=== PATIENT | female | born 1980 | race Caucasian/White ===

== ENCOUNTER 2020-11-30 13:42 | Emergency (ER) | payer OTHER ==
[2020-11-30 14:06] VITALS: BP 112/76; PULSE 82; TEMP 97.6; BMI 30.8
[2020-11-30 15:21] LABS: URINE APPEARANCE CLEAR; URINE BILIRUBIN NEGATIVE (NEGATIVE); URINE COLOR YELLOW; URINE GLUCOSE (UA) NEGATIVE (NEGATIVE); URINE KETONE NEGATIVE (NEGATIVE); URINE LEUK ESTERASE NEGATIVE (NEGATIVE); URINE NITRITE NEGATIVE (NEGATIVE); URINE PROTEIN NEGATIVE (NEGATIVE); URINE UROBILINOGEN 0.2 mg/dL (0.2-1.0)
== END 2020-11-30 15:44 | disposition home or self-care (01) ==
LOC: JERFT 13:42
DX: O23.599 Infection of other part of genital tract in pregnancy, unspecified trimester (principal); O21.9 Vomiting of pregnancy, unspecified
CPT/HCPCS: 36415; 81003; 84703; 87070; 87077; 87086; 87205; 87491; 87591; 99284-25

== ENCOUNTER 2020-12-02 19:41 | Emergency (ER) | payer OTHER ==
[2020-12-02 19:54] VITALS: BP 117/75; PULSE 85; TEMP 98.9; BMI 30.1
== END 2020-12-02 20:50 | disposition home or self-care (01) ==
LOC: JERFT 19:41
DX: J30.89 Other allergic rhinitis (principal)
CPT/HCPCS: 99281-25; C9803; U0003; U0005

== ENCOUNTER 2021-01-26 14:54 | Emergency (ER) | payer OTHER ==
[2021-01-26 15:15] VITALS: BP 106/72; PULSE 74; TEMP 98; BMI 26.5
[2021-01-26] MEDS ORDERED: SODIUM CHLORIDE 0.9% 500 ML INFUS.BAG IV ONE (16:22)
[2021-01-26 17:05] LABS: BASO % 0.5 % (0-2.0); EOS % 1.4 % (0-4.5); HEMATOCRIT 36.4 % (32.4-45.2); HEMOGLOBIN 12.1 GM/dL (10.7-15.3); LYMPH % 34.7 % (8-40); MCH 27.3 pg (25.7-33.7); MCHC 33.2 g/dl (32.0-36.0); MEAN CELL VOLUME 82.4 fl (80-96); MEAN PLT VOLUME 7.5 fl (7.5-11.1); MONO % 7.2 % (3.8-10.2); NEUT % 56.2 % (42.8-82.8); PLATELET COUNT 270 10^3/uL (134-434); RBC 4.41 M/mm3 (3.60-5.2); RDW 13.8 % (11.6-15.6)
[2021-01-26 17:07] LABS: PH,URINE 7.5 (5.0-8.0); URINE APPEARANCE CLEAR; URINE BILIRUBIN NEGATIVE (NEGATIVE); URINE COLOR YELLOW; URINE GLUCOSE (UA) NEGATIVE (NEGATIVE); URINE KETONE NEGATIVE (NEGATIVE); URINE LEUK ESTERASE NEGATIVE (NEGATIVE); URINE NITRITE NEGATIVE (NEGATIVE); URINE PROTEIN NEGATIVE (NEGATIVE)
[2021-01-26 17:12] LABS: INR 1.06 (0.83-1.09)
[2021-01-26 17:15] LABS: ACTIVATED PTT 27.9 SECONDS (25.2-36.5)
[2021-01-26 17:26] LABS: BLOOD UREA NITROGEN 6.8 mg/dL (7-18); CALCIUM 8.5 mg/dL (8.5-10.1)
[2021-01-26 17:27] LABS: ALBUMIN 3.9 g/dl (3.4-5.0)
[2021-01-26 17:30] LABS: CREATININE 0.7 mg/dL (0.55-1.3)
[2021-01-26 17:31] LABS: BILIRUBIN,TOTAL 1.3 mg/dL (0.2-1); TOT PROT 7.8 g/dl (6.4-8.2)
== END 2021-01-26 18:50 | disposition home or self-care (01) ==
LOC: JER 14:54
DX: O26.851 Spotting complicating pregnancy, first trimester (principal); Z3A.12 12 weeks gestation of pregnancy
CPT/HCPCS: 36415; 76817-TC; 80053; 81003; 84702; 85025; 85610; 85730; 86850; 86900; 86901; 87086; 99284-25

== ENCOUNTER 2021-02-08 23:03 | Emergency (ER) | payer OTHER ==
[2021-02-08 23:11] VITALS: BP 118/77; PULSE 100; TEMP 98.7; BMI 28.3
[2021-02-08 23:55] LABS: BASO % 0.7 % (0-2.0); EOS % 1.1 % (0-4.5); HEMATOCRIT 37.1 % (32.4-45.2); HEMOGLOBIN 12.5 GM/dL (10.7-15.3); MCH 27.6 pg (25.7-33.7); MCHC 33.7 g/dl (32.0-36.0); MEAN CELL VOLUME 81.8 fl (80-96); MEAN PLT VOLUME 7.1 fl (7.5-11.1); MONO % 5.3 % (3.8-10.2); NEUT % 68.9 % (42.8-82.8); PLATELET COUNT 312 10^3/uL (134-434); RBC 4.54 M/mm3 (3.60-5.2); RDW 13.5 % (11.6-15.6); WHITE BLOOD COUNT 9.7 K/mm3 (4.0-10.0)
[2021-02-09 01:17] LABS: ALBUMIN 4.3 g/dl (3.4-5.0)
[2021-02-09 01:18] LABS: BLOOD UREA NITROGEN 10.2 mg/dL (7-18)
[2021-02-09 01:21] LABS: CREATININE 0.7 mg/dL (0.55-1.3)
[2021-02-09 01:22] LABS: TOT PROT 8.3 g/dl (6.4-8.2)
== END 2021-02-09 02:39 | disposition left against medical advice (07) ==
LOC: JER 23:03
DX: N93.9 Abnormal uterine and vaginal bleeding, unspecified (principal)
CPT/HCPCS: 36415; 76817-TC; 80053; 84702; 85025; 86850; 86900; 86901; 99284-25

== ENCOUNTER 2021-02-11 17:58 | Emergency (ER) | payer OTHER ==
[2021-02-11 18:23] VITALS: BP 116/79; PULSE 88; BMI 26.5
[2021-02-11] MEDS ORDERED: SODIUM CHLORIDE 0.9% 500 ML INFUS.BAG IV ONE (20:00)
[2021-02-11] MEDS ORDERED: ACETAMINOPHEN 1000 MG/100 ML VIAL (NON FORMULARY) IVPB ONE (20:00)
[2021-02-11] MEDS ORDERED: ACETAMINOPHEN INJECTION 100 ML IVPB ONE (21:09)
[2021-02-11 21:18] LABS: BASO % 0.9 % (0-2.0); EOS % 2.1 % (0-4.5); HEMOGLOBIN 11.6 GM/dL (10.7-15.3); LYMPH % 35.3 % (8-40); MCH 27.5 pg (25.7-33.7); MCHC 33.3 g/dl (32.0-36.0); MEAN CELL VOLUME 82.6 fl (80-96); MEAN PLT VOLUME 7.2 fl (7.5-11.1); MONO % 6.4 % (3.8-10.2); NEUT % 55.3 % (42.8-82.8); PLATELET COUNT 291 10^3/uL (134-434); RBC 4.23 M/mm3 (3.60-5.2); RDW 13.7 % (11.6-15.6); WHITE BLOOD COUNT 6.8 K/mm3 (4.0-10.0)
[2021-02-11 21:27] VITALS: TEMP 98.7
[2021-02-11 21:47] LABS: ALBUMIN 4.1 g/dl (3.4-5.0); BLOOD UREA NITROGEN 10.2 mg/dL (7-18); CALCIUM 8.5 mg/dL (8.5-10.1)
[2021-02-11 21:50] LABS: BILIRUBIN,TOTAL 0.6 mg/dL (0.2-1)
[2021-02-11 21:50] LABS: EPI CELLS >36 /uL (0-25.1); HYALINE CASTS 2 /uL (0-3.1); URINE APPEARANCE TURBID; URINE BACTERIA 620 /uL (0-1359); URINE BILIRUBIN 1+ (NEGATIVE); URINE COLOR RED; URINE GLUCOSE (UA) NEGATIVE (NEGATIVE); URINE KETONE NEGATIVE (NEGATIVE); URINE LEUK ESTERASE 1+ (NEGATIVE); URINE NITRITE NEGATIVE (NEGATIVE); URINE PROTEIN 2+ (NEGATIVE); URINE RBC 19991 /uL (0-23.9); URINE UROBILINOGEN 0.2 mg/dL (0.2-1.0); URINE WBC 81 /uL (0-25.8)
[2021-02-11 21:51] LABS: CREATININE 0.7 mg/dL (0.55-1.3); TOT PROT 7.6 g/dl (6.4-8.2)
[2021-02-11] MEDS ORDERED: LIDOCAINE PATCH REMOVAL MC SCH (22:00)
[2021-02-11] MEDS ORDERED: LIDOCAINE 5% TOPICAL PATCH TP ONE (22:08)
[2021-02-11] MEDS ORDERED: LIDOCAINE 5% TOPICAL PATCH ONE (22:12)
== END 2021-02-11 23:25 | disposition home or self-care (01) ==
LOC: JER 17:58
PROC: 3E0333Z Introduction of Anti-inflammatory into Peripheral Vein, Percutaneous Approach (ICD-10-PCS; principal; 2021-02-11)
DX: O03.9 Complete or unspecified spontaneous abortion without complication (principal)
CPT/HCPCS: 36415; 71046-TC-FY; 76830-TC; 80053; 81003; 84702; 85025; 86850; 86900; 86901; 99285-25; C9803; J0131; U0003; U0005

== ENCOUNTER 2024-04-02 22:40 | Inpatient (IN) | payer OTHER ==
[2024-04-03] MEDS ORDERED: FAMOTIDINE 20 MG/50 ML IVPB 20 MG/50 ML MG IVPB ONE (00:24)
[2024-04-03] MEDS ORDERED: MAG HYDROX/AL HYDROX/SIMETH 30 ML UNIT-DOSE CUP ONE (00:33)
[2024-04-03] MEDS ORDERED: ACETAMINOPHEN INJECTION 100 ML ONE (00:34)
[2024-04-03] MEDS: MAG HYDROX/AL HYDROX/SIMETH 30 ML UNIT-DOSE CUP PO ONE ×2 (00:44→09:36)
[2024-04-03 01:01] LABS: BASO % 0.5 % (0-2.0); EOS % 5.3 % (0-4.5); HEMATOCRIT 35.7 % (32.4-45.2); HEMOGLOBIN 11.6 GM/dL (10.7-15.3); LYMPH % 33.4 % (8-40); MCHC 32.5 g/dl (32.0-36.0); MEAN CELL VOLUME 82.9 fl (80-96); MEAN PLT VOLUME 7.1 fl (7.5-11.1); MONO % 9.8 % (3.8-10.2); PH,URINE 5.5 (5.0-8.0); PLATELET COUNT 291 10^3/uL (134-434); RBC 4.31 M/mm3 (3.60-5.2); RDW 14.1 % (11.6-15.6); URINE APPEARANCE CLEAR; URINE BILIRUBIN NEGATIVE (NEGATIVE); URINE COLOR YELLOW; URINE GLUCOSE (UA) NEGATIVE (NEGATIVE); URINE KETONE NEGATIVE (NEGATIVE); URINE LEUK ESTERASE NEGATIVE (NEGATIVE); URINE NITRITE NEGATIVE (NEGATIVE); URINE PROTEIN NEGATIVE (NEGATIVE); WHITE BLOOD COUNT 6.4 K/mm3 (4.0-10.0)
[2024-04-03 01:09] LABS: HCG,QUALITATIVE URINE Negative
[2024-04-03 01:13] LABS: INR 1.04 (0.83-1.09); PROTHROMBIN TIME (PATIENT) 11.9 SEC (9.7-13.0)
[2024-04-03 01:16] LABS: ACTIVATED PTT 31.1 SECONDS (25.2-36.5)
[2024-04-03] MEDS: ACETAMINOPHEN 1000 MG/100 ML BAG IVPB ONE ×2 (01:17→06:40)
[2024-04-03] MEDS: SODIUM CHLORIDE 0.9% 500 ML INFUS.BAG IV ONE (01:17)
[2024-04-03 01:22] LABS: POTASSIUM 4.7 mmol/L (3.5-5.1)
[2024-04-03 01:24] LABS: CALCIUM 9.3 mg/dL (8.5-10.1)
[2024-04-03 01:25] LABS: ALBUMIN 3.3 g/dl (3.4-5.0); BLOOD UREA NITROGEN 11.7 mg/dL (7-18)
[2024-04-03 01:29] LABS: CREATININE 0.8 mg/dL (0.55-1.3)
[2024-04-03 01:30] LABS: TOT PROT 6.6 g/dl (6.4-8.2)
[2024-04-03] MEDS ORDERED: morphine SULFATE 4 MG/ML VIAL ONE (01:35)
[2024-04-03] MEDS ORDERED: ONDANSETRON 4 MG/2 ML VIAL ONE (01:36)
[2024-04-03 01:37] LABS: BILIRUBIN,TOTAL 0.8 mg/dL (0.2-1)
[2024-04-03] MEDS: morphine CARPU-JECT 4 MG/1 ML DISP.SYRIN IVPUSH ONE (01:43)
[2024-04-03] MEDS: ONDANSETRON 4 MG/2 ML VIAL IVPUSH ONE (01:44)
[2024-04-03 05:58] VITALS: BMI 34.2
[2024-04-03] MEDS ORDERED: MAG HYDROX/AL HYDROX/SIMETH -MYLANTA- ORAL SUSPENSION PO ONE (08:52)
[2024-04-03] MEDS ORDERED: ACETAMINOPHEN 500 MG TABLET (FP) PO PRN (08:53)
[2024-04-03] MEDS: LACTATED RINGERS SOLUTION 1,000 ML/1,000 ML INFUS.BAG IV SCH (09:35)
[2024-04-03] MEDS: PANTOPRAZOLE 40 MG TABLET PO SCH (09:36)
[2024-04-03] MEDS: ENOXAPARIN NA (PORCINE) 40 MG/0.4 ML DISP.SYRIN SQ SCH (09:36)
[2024-04-03 10:18] LABS: BASO % 0.4 % (0-2.0); EOS % 4.3 % (0-4.5); HEMATOCRIT 35.6 % (32.4-45.2); HEMOGLOBIN 11.4 GM/dL (10.7-15.3); LYMPH % 37.8 % (8-40); MCH 26.8 pg (25.7-33.7); MEAN CELL VOLUME 83.8 fl (80-96); MEAN PLT VOLUME 7.6 fl (7.5-11.1); MONO % 8.8 % (3.8-10.2); NEUT % 48.7 % (42.8-82.8); PLATELET COUNT 276 10^3/uL (134-434); RBC 4.25 M/mm3 (3.60-5.2); RDW 13.8 % (11.6-15.6); WHITE BLOOD COUNT 6.6 K/mm3 (4.0-10.0)
[2024-04-03 11:59] LABS: POTASSIUM 3.8 mmol/L (3.5-5.1)
[2024-04-03 12:03] LABS: CALCIUM 8.6 mg/dL (8.5-10.1)
[2024-04-03 12:04] LABS: ALBUMIN 3.2 g/dl (3.4-5.0); MAGNESIUM 1.9 mg/dL (1.8-2.4)
[2024-04-03 12:05] LABS: BLOOD UREA NITROGEN 10.8 mg/dL (7-18)
[2024-04-03 12:07] LABS: CREATININE 0.7 mg/dL (0.55-1.3)
[2024-04-03 12:08] LABS: BILIRUBIN,TOTAL 1.3 mg/dL (0.2-1)
[2024-04-03 12:09] LABS: TOT PROT 6.3 g/dl (6.4-8.2)
[2024-04-04] MEDS: MELATONIN 5 MG TABLETS PO ONE (00:23)
[2024-04-04] MEDS: MELATONIN 1 MG TABLET PO ONE (06:13)
[2024-04-04] MEDS: MAG HYDROX/AL HYDROX/SIMETH 30 ML UNIT-DOSE CUP PO ONE (06:13)
[2024-04-04] MEDS: PANTOPRAZOLE 40 MG TABLET PO SCH (06:29)
[2024-04-04] MEDS: ONDANSETRON 4 MG/2 ML VIAL IVPUSH PRN (09:05)
[2024-04-04] MEDS: DEXTROSE 5%-0.45% SALINE 1,000 ML IV SCH (17:17)
[2024-04-04] MEDS: MELATONIN 1 MG TABLET PO PRN (21:45)
[2024-04-04] MEDS: ACETAMINOPHEN 1000 MG/100 ML BAG IVPB ONE (22:48)
[2024-04-05 10:22] LABS: POTASSIUM 3.9 mmol/L (3.5-5.1)
[2024-04-05 10:32] LABS: ALBUMIN 3.4 g/dl (3.4-5.0); BLOOD UREA NITROGEN 4.6 mg/dL (7-18); CALCIUM 8.8 mg/dL (8.5-10.1)
[2024-04-05 10:35] LABS: BILIRUBIN,DIRECT 0.2 mg/dL (0.0-0.2); CREATININE 0.7 mg/dL (0.55-1.3)
[2024-04-05 10:37] LABS: BILIRUBIN,TOTAL 1.2 mg/dL (0.2-1); TOT PROT 6.6 g/dl (6.4-8.2)
[2024-04-05] MEDS: ACETAMINOPHEN 1000 MG/100 ML BAG IVPB PRN (11:06)
[2024-04-05 14:18] VITALS: RESP 20
[2024-04-05] MEDS: PANTOPRAZOLE 40 MG TABLET PO SCH (21:14)
[2024-04-06] MEDS ORDERED: morphine SULFATE 4 MG/ML VIAL IVPUSH PRN (08:34)
[2024-04-06 09:43] LABS: POTASSIUM 4.2 mmol/L (3.5-5.1)
[2024-04-06 09:54] LABS: ALBUMIN 3.6 g/dl (3.4-5.0); BLOOD UREA NITROGEN 6.4 mg/dL (7-18); CALCIUM 9.4 mg/dL (8.5-10.1)
[2024-04-06 09:57] LABS: CREATININE 0.7 mg/dL (0.55-1.3)
[2024-04-06 09:58] LABS: BILIRUBIN,TOTAL 1.3 mg/dL (0.2-1)
[2024-04-06 09:59] LABS: TOT PROT 6.9 g/dl (6.4-8.2)
[2024-04-06] MEDS: methaDONE HCL 10 MG TABLET PO ONE (11:48)
[2024-04-06 13:32] VITALS: BP 122/86; PULSE 74; TEMP 98.1
== END 2024-04-06 16:58 | disposition home or self-care (01) | DRG 251 ==
LOC: JER 22:40 → JERBED 04-03 02:38 → OBSVTOIN 04-03 02:38 → J6S 04-03 05:45
PROVIDERS: ADMIT Internal Medicine; ATTEND Internal Medicine
PROC: 0DB68ZX Excision of Stomach, Via Natural or Artificial Opening Endoscopic, Diagnostic (ICD-10-PCS; 2024-04-05)
PROC: 0DB98ZX Excision of Duodenum, Via Natural or Artificial Opening Endoscopic, Diagnostic (ICD-10-PCS; principal; 2024-04-05 13:00)
DX: R10.9 Unspecified abdominal pain (principal); K44.9 Diaphragmatic hernia without obstruction or gangrene; K29.50 Unspecified chronic gastritis without bleeding; B96.81 Helicobacter pylori [H. pylori] as the cause of diseases classified elsewhere; R32 Unspecified urinary incontinence; E66.9 Obesity, unspecified; Z68.34 Body mass index [BMI] 34.0-34.9, adult; J45.909 Unspecified asthma, uncomplicated; K29.80 Duodenitis without bleeding
CPT/HCPCS: 36415; 72128-TC; 72131-TC; 74181-TC; 76705-TC; 80053; 81003; 82248; 82607; 82746; 83690; 83735; 84100; 84703; 85025; 85610; 85730; 87086; 88305-TC; 88341-TC; 88342-TC; 93005; 93010; 99285-25; J0131